=== PATIENT | male | born 1970 | race Caucasian/White ===

== ENCOUNTER 2017-12-31 21:36 | Emergency (ER) | payer OTHER ==
[2017-12-31 21:45] VITALS: BP 137/94
[2017-12-31] MEDS ORDERED: LIDOCAINE 4%/TETRACAINE 0.5%/EPI 0.18% 5 ML TOPICAL SOLN TOP ONE (21:51)
[2017-12-31] MEDS ORDERED: DIPH/PERTUSS(ACELL)/TETANUS VAC/PF 0.5 ML SYR (>=10YO) IM ONE (21:51)
--- NOTE | 2017-12-31 22:48 | ER Document Report ---
ED General - General Chief Complaint: Laceration Stated Complaint: HEAD LACERATION Time Seen by Provider: 12/31/17 21:46 Mode of Arrival: Ambulatory Information source: Patient TRAVEL OUTSIDE OF THE [place] IN LAST 30 DAYS: No - HPI Notes: Patient is a pleasant 47-year-old male presents to the emergency department with report that he accidentally was struck in the upper scalp by a door that came shut on his head just prior to arrival. He denies any loss of consciousness or headache or significant neck pain. He reports no numbness or paresthesia or chest pain or back pain. He denies any nausea or vomiting. Patient is unaware of his last tetanus shot. - Related Data Allergies/Adverse Reactions: No Known Allergies Allergy (Unverified 12/31/17 21:38) Past Medical History - General Information source: Patient - Social History Smoking Status: Never Smoker Chew tobacco use (# tins/day): No Frequency of alcohol use: None Drug Abuse: None Lives with: Family Family History: Reviewed & Not Pertinent Patient has suicidal ideation: No Patient has homicidal ideation: No Renal/ Medical History: Denies: Hx Peritoneal Dialysis Review of Systems - Review of Systems Notes: REVIEW OF SYSTEMS: CONSTITUTIONAL : Denies fever, chills, or sweats. Denies recent illness. EENT: Denies eye, ear, throat, or mouth pain or symptoms. Denies nasal or sinus congestion or discharge. Denies throat, tongue, or mouth swelling or difficulty swallowing. CARDIOVASCULAR: Denies chest pain. RESPIRATORY: Denies cough, cold, or chest congestion. Denies shortness of breath, difficulty breathing, or wheezing. GASTROINTESTINAL: Denies abdominal pain or distention. Denies nausea, vomiting , or diarrhea. MUSCULOSKELETAL: Denies back or neck pain or stiffness. Denies joint pain or swelling. SKIN: Denies rash, or sores. HEMATOLOGIC : Denies easy bruising or bleeding. LYMPHATIC: Denies swollen, enlarged glands. NEUROLOGICAL: Denies confusion or altered mental status. Denies passing out or loss of consciousness. Denies dizziness or lightheadedness. Denies headache. Denies weakness or paralysis or loss of use of either side. Denies problems with gait or speech. Denies sensory loss, numbness, or tingling. Denies seizures. PSYCHIATRIC: Denies anxiety or stress. Denies depression, suicidal ideation, or homicidal ideation. ALL OTHER SYSTEMS REVIEWED AND NEGATIVE. Dictation was performed using [employer] voice recognition software Physical Exam - Vital signs Vitals: Temp Pulse Resp BP Pulse Ox 98.0 F 73 16 137/94 H 98 12/31/17 21:41 12/31/17 21:41 12/31/17 21:41 12/31/17 21:41 12/31/17 21:41 - Notes Notes: General no obvious distress HEENT patient has an occipital 2.5 cm laceration goes and scalp region. No bony deformity or crepitance or foreign body noted. There is good alignment. Patient otherwise atraumatic normocephalic. Pupils equally round and reactive light conjunctiva clear. Nose and oropharynx are clear. Neck trachea midline supple nontender. Back nontender Neurologic exam cranial nerves II through XII are intact. Normal gait exam. No motor or sensory deficit noted. Course - Re-evaluation Re-evalutation: 12/31/17 23:01 Tetanus shot was given. After discussion of risks, alternatives, and benefits, the Wound area was cleaned and Topical anesthetic LET was applied to the wound, then the wound was reapproximated and closed using Dermabond with good result. Care was taken to make sure there is no hair in the wound. Patient tolerated this well. Blood loss negligible. With no loss of consciousness and no headache in the patient neurologically intact, I have no concern for intracranial injury or other acute trauma. Patient was given a tetanus shot. - Vital Signs Vital signs: Temp Pulse Resp BP Pulse Ox 98.0 F 73 16 137/94 H 98 12/31/17 21:41 12/31/17 21:41 12/31/17 21:41 12/31/17 21:41 12/31/17 21:41 Discharge - Discharge Clinical Impression: Head injury Qualifiers: Encounter type: initial encounter Qualified Code(s): S09.90XA - Unspecified injury of head, initial encounter Occipital scalp laceration Qualifiers: Encounter type: initial encounter Qualified Code(s): S01.01XA - Laceration without foreign body of scalp, initial encounter Condition: Stable Disposition: HOME, SELF-CARE Instructions: Family Physicians / Practices, Head Injury Precautions ([facility]), Tetanus Immunization Given ([facility]) Additional Instructions: Return to the emergency department in case of severe headache, nausea.
== END 2017-12-31 23:07 | disposition home or self-care (01) ==
LOC: ER 21:36
PROC: 0HQ0XZZ Repair Scalp Skin, External Approach (ICD-10-PCS; principal; 2017-12-31)
DX: S01.01XA Laceration without foreign body of scalp, initial encounter (principal); W22.8XXA Striking against or struck by other objects, initial encounter; Z23 Encounter for immunization
CPT/HCPCS: 99282; 90715; 12001; J3490